=== PATIENT | male | born 1990 | race Two or more races ===

== ENCOUNTER 2016-11-02 20:21 | Emergency (ER) | payer SELFPAY ==
[~2016-11-02] VITALS: Ht 162.6 cm; Wt 81.6 kg
[2016-11-02] MEDS ORDERED: NKM (20:48)
[2016-11-02] MEDS ORDERED: IBUPROFEN600 MG ORAL (22:10)
[2016-11-02] MEDS ORDERED: TRAMADOL HCL50 MG ORAL (22:10)
[2016-11-02 22:18] VITALS: BP 132/77
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
== END 2016-11-02 22:15 | disposition home or self-care (01) ==
LOC: EMR 21:02
DX: S16.1XXA Strain of muscle, fascia and tendon at neck level, initial encounter (principal); V43.52XA Car driver injured in collision with other type car in traffic accident, initial encounter; Y92.9 Unspecified place or not applicable
CPT/HCPCS: 99284